=== PATIENT | female | born 1940 | race Two or more races ===

== ENCOUNTER → 2017-11-13 | Emergency (ER) | payer OTHER ==
[~2017-11-13] VITALS: Ht 162.6 cm; Wt 58.5 kg
== END | disposition home or self-care (01) ==
LOC: ER 20:15
DX: N20.0 Calculus of kidney (principal)

== ENCOUNTER 2018-03-26 13:47 | Outpatient (CLI) | payer OTHER | END 2018-03-26 13:56 | disposition home or self-care (01) | LOC: RAD 13:47 | DX: M54.5 Low back pain (principal) ==

== ENCOUNTER 2020-08-30 12:33 | Outpatient (CLI) | payer OTHER | END 2020-08-30 12:39 | disposition home or self-care (01) | LOC: TOM 12:33 | DX: I62.01 Nontraumatic acute subdural hemorrhage (principal) ==

== ENCOUNTER → 2020-12-05 | Emergency (ER) | payer OTHER ==
[~2020-12-05] VITALS: Ht 162.6 cm; Wt 59.0 kg
== END | disposition left against medical advice (07) ==
LOC: ER 08:36
DX: S01.02XA Laceration with foreign body of scalp, initial encounter (principal); S06.5X0A Traumatic subdural hemorrhage without loss of consciousness, initial encounter; S06.4X0A Epidural hemorrhage without loss of consciousness, initial encounter; M47.892 Other spondylosis, cervical region; W18.09XA Striking against other object with subsequent fall, initial encounter; Y93.89 Activity, other specified; Y92.038 Other place in apartment as the place of occurrence of the external cause; Y99.8 Other external cause status